=== PATIENT | female | born 1985 | race African-American/Black ===

== ENCOUNTER 2016-10-23 13:30 | Emergency (ER) | payer SELFPAY ==
[2016-10-23] MEDS ORDERED: KETOROLAC TROMETHAMINE 60 MG/2 ML VIAL IM ONE ×2 (13:38→14:11)
[2016-10-23] MEDS ORDERED: METHYLPREDNISOLONE ACETATE 80 MG/ML VIAL IM ONE (13:39)
--- NOTE | 2016-10-23 13:41 | ERNOTE ---
Dyspnea - Date Date of Service: 10/23/16 - General Presenting Symptoms: shortness of breath, wheezing Time Seen by Provider: 10/23/16 13:38 Source: patient Exam Limitations: no limitations - Immun/Allergies/Home Medications Allergies/Adverse Reactions: Allergies No Known Allergies Allergy (Verified 10/23/16 13:39) Home Medications: HOME MEDICATIONS Albuterol Sulfate [Proair Hfa] 2 puff IH QID PRN 10/23/16 [Last Taken Unknown] predniSONE [Prednisone] 3 tab PO DAILY #9 tab 10/23/16 [Last Taken Unknown] - History of Present Illness Narrative: Pt. comes in with c/o Increased SOB, cough, rhinorrhea, and L ear pain for three days. Pt. states that she moved into a new house three days ago and has been cleaning for the past three days and EMS came and gave her a breathing treatment yesterday when she became SOB but improved with treatment. Pt. also is out of her prescribed inhaler. Review of Systems - Review of Systems Constitutional: Present: no symptoms reported. Absent: recent illness, fever, chills EYE: Present: no symptoms reported ENT: Present: ear pain, nose congestion, nasal drainage Respiratory: Present: shortness of breath, cough, wheezing Cardiology: Present: no symptoms reported. Absent: chest pain, palpitations, edema Gastrointestinal/Abdominal: Present: no symptoms reported. Absent: nausea, vomiting, diarrhea Musculoskeletal: Present: no symptoms reported. Absent: back pain, joint pain Skin: Present: no symptoms reported Neurological: Present: no symptoms reported. Absent: headache, dizziness/light- headedness, numbness, tingling All Other Systems: All systems neg except as marked - Patient's Past Medical History Patient History - Medical: No pertinent hx Patient History - Cardiac/Respiratory: Asthma Patient History - Cancer: No Hx of Cancer Patient History - Other: None - Social History Living Situations: home Psych History: No pertinent hx Alcohol Use: none Drug Use: none Physical Exam - Physical Exam General Appearance: Present: wd/wn, alert, no apparent distress Eye Exam: Normal inspection: bilateral, PERRL: bilateral, EOMI: bilateral Ears, Nose, Throat: Present: abnormal TM (L) - erythema and fluid, normal pharynx Neck: Present: normal inspection, nontender. Absent: lymphadenopathy (R), lymphadenopathy (L) Respiratory: Present: no respiratory distress, no accessory muscle use, chest nontender, decreased breath sounds - LLL Cardiovascular/Chest: Present: no murmur, normal peripheral pulses, tachycardia Gastrointestinal/Abdominal: Present: normal bowel sounds, nontender, nondistended Back Exam: Present: normal inspection Extremity Exam: Present: normal inspection Neurological Exam: Present: alert, oriented, normal mood/affect, no motor/ sensory deficits, audit analyst II-XII nml as tested, normal cerebellar test Skin Exam: Present: normal color, warm/dry. Absent: pallor, skin rash ED Progress - Vital Signs Patient's Vital Signs:: I have reviewed the patient's vital signs. Vital Signs: Vital Signs 10/23/16 13:32 Temperature 36.9 C Pulse Rate 100 Respiratory 20 Rate Blood Pressure 129/86 O2 Sat by Pulse 100 Oximetry - X-Ray X-Ray #1 X-Ray: chest Interpretation: Interp. by me X-ray Comments: no consolidation or infiltrate. reactive airway - Progress/Reassessment Chief Complaint: Dyspnea Departure Clinical Impression: Asthma exacerbation Allergic rhinitis Qualifiers: Chronicity: acute Allergic rhinitis trigger: animal hair and dander Qualified Code(s): J30.81 - Allergic rhinitis due to animal (cat) (dog) hair and dander Allergic otitis media of left ear Qualifiers: Chronicity: acute Recurrence: not specified as recurrent Qualified Code(s): H65.112 - Acute and subacute allergic otitis media (mucoid) (sanguinous) (serous ), left ear - Departure Disposition: Home self-care Condition: Good Instructions: Allergies, [id number], Otitis Media With Effusion Additional Instructions: Please follow up with primary provider in 2-3 days. May see community health centers in [facility] for cost reduction services. Prescriptions: predniSONE [Prednisone] 3 tab PO DAILY #9 tab
[2016-10-23 13:55] LABS: Hematocrit 37.6 % (37.0-47.0); Hemoglobin 12.7 gm/dL (12.5-16.0); Mean Cell Volume 88.3 fl (78-100); Mean Corpuscular Hemoglobin 29.8 pg (27-31); Mean Corpuscular Hgb Conc 33.8 g/dl (32-36); Mean Platelet Volume 9.9 fl (6.0-9.5); Neutrophil # 3.7 K/mm3 (1.3-6.0); Neutrophil % 53.5 % (42-75.0); Platelet Count 171 K/mm3 (150-450); Red Blood Count 4.26 M/mm3 (4.2-5.4); Red Cell Distribution Width 13.3 % (11.5-14.0)
[2016-10-23 14:08] LABS: Albumin * 3.4 gm/dl (3.4-5.0); Anion Gap 11.3 mmol/L (6.8-13.8); BUN/Creatinine Ratio 5.2 (9.0-21.6); Bilirubin, Total 0.8 mg/dL (0.0-1.1); Ca. Corrected For Albumin 8.8 mg/dL (8.4-10.2); Calcium * 8.6 mg/dL (7.9-10.9); Carbon Dioxide 25.7 mmol/L (24-32.6); Total Protein 7.2 gm/dL (6.2-8.2)
[2016-10-23] MEDS ORDERED: METHYLPREDNISOLONE ACETATE 80 MG/ML VIAL ONE (14:11)
[2016-10-23 14:29] VITALS: BP 126/78
[2016-10-23] MEDS ORDERED: ALBUTEROL SULFATE 60 PUFF INHALER IH ONE (14:34)
[2016-10-23] MEDS ORDERED: ALBUTEROL SULFATE 200 PUFF INHALER IH ONE (14:51)
[2016-10-23] MEDS ORDERED: ALBUTEROL SULFATE 5 MG/ML BTL IH ONE (14:54)
== END 2016-10-23 15:36 | disposition home or self-care (01) ==
LOC: ER 13:30
DX: J45.901 Unspecified asthma with (acute) exacerbation (principal); J30.81 Allergic rhinitis due to animal (cat) (dog) hair and dander; H65.112 Acute and subacute allergic otitis media (mucoid) (sanguinous) (serous), left ear; L03.818 Cellulitis of other sites